=== PATIENT | male | born 1970 | race Caucasian/White ===

== ENCOUNTER 2017-04-06 14:51 | Emergency (ER) | payer BC ==
--- NOTE | 2017-04-06 15:20 | C.PDOC ---
History Of Present Illness 47 yo male, no prior hx, presents from clinic for eval of hypertensive urgency and "abdominal mass". as per [facility], pt was noted to have elevated pressure on routine office visit pt reports an "upper abdominal mass", that he has had for last 3 months. clinic was concerned for AAA. no fevers, n/v/d, or urinary change.s Time Seen by Provider: 04/06/17 15:13 Chief Complaint (Nursing): High Blood Pressure Past Medical History Reviewed: Historical Data, Nursing Documentation, Vital Signs Vital Signs: Last Vital Signs Temp 98.9 F 04/06/17 18:04 Pulse 79 04/06/17 18:04 Resp 20 04/06/17 18:04 BP 191/130 H 04/06/17 18:04 Pulse Ox 98 04/06/17 21:38 Family History: States: Unknown Family Hx - Social History Hx Alcohol Use: No Hx Substance Use: No Review Of Systems Except As Marked, All Systems Reviewed And Found Negative. Gastrointestinal: Positive for: Abdominal Pain Physical Exam - Physical Exam Appears: Well, No Acute Distress Skin: Normal Color, Warm, Dry Eye(s): bilateral: Normal Inspection, PERRL, EOMI Nose: Normal Throat: Normal Neck: Normal Cardiovascular: Rhythm Regular Respiratory: Normal Breath Sounds Gastrointestinal/Abdominal: Normal Exam, Soft, Tenderness (mild epigastric), No Guarding, No Rebound Back: Normal Inspection Extremity: Normal ROM ED Course And Treatment - Laboratory Results Result Diagrams: 04/06/17 15:28 04/06/17 15:28 O2 Sat by Pulse Oximetry: 98 Medical Decision Making Medical Decision Making: r/o hypertensive urgency vs emergency. ?mass -?aaa. no pulsatile mass felt in er , clinc sent pt for imaging ekg nsr 94 lvh, nonspecific st t wave changes 610: clinic doctor advises spoke to dr blackwood for abnormal ekg, lvh, requested pt be admitted for eval. pt now refusing admission. will sign ama. understands risks Disposition - Disposition Referrals: [facility] [Outside] Intensive Care Nurse Service [Outside] Herman Chan MD [Staff Provider] - Milton Blackwood MD [Staff Provider] - Disposition: HOME/ ROUTINE Disposition Time: 18:09 Condition: STABLE Additional Instructions: you are chosing to not be admitted to hospital. return to er with worsneing symptoms or concerns. Prescriptions: Famotidine [Pepcid] 20 mg PO DAILY #20 tab Instructions: Acute Abdominal Pain (ED), Hypertension (ED), Against Medical Advice (ED) Print Language: PALAUAN - Clinical Impression Clinical Impression: Hypertensive urgency, Abdominal pain
[2017-04-06] MEDS ORDERED: Labetalol 25mg/5ml Syringe IVP STA (15:24)
[2017-04-06 15:36] LABS: BASO # 0.1 K/uL (0.0-0.2); BASO % 0.9 % (0.0-2.0); EOS # 0.2 K/uL (0.0-0.7); HEMOGLOBIN 14.7 g/dL (12.0-18.0); LYMPH # 2.8 K/uL (1.0-4.3); LYMPH % 34.4 % (20.0-40.0); MEAN CELL VOLUME 88.4 fL (80.0-94.0); MEAN CORPUSCULAR HGB CONC 32.8 g/dL (33.0-37.0); MEAN PLATELET VOLUME 8.4 fL (7.2-11.7); MONO # 0.7 K/uL (0.0-0.8); MONO % 8.7 % (0.0-10.0); NEUT # 4.5 K/uL (1.8-7.0); RBC 5.06 Mil/uL (4.40-5.90); RED CELL DISTRIBUTION WIDTH 14.2 % (11.5-14.5); WHITE BLOOD COUNT 8.3 K/uL (4.8-10.8)
[2017-04-06 15:43] LABS: ALBUMIN 4.3 g/dL (3.5-5.0)
[2017-04-06 15:46] LABS: ALB/GLOB RATIO 1.2 (1.0-2.1); ALT/SGPT 52 U/L (21-72); AST/SGOT 32 U/L (17-59); BLOOD UREA NITROGEN 17 mg/dL (9-20); GFR AFRICAN-AMERICAN > 60; GFR NON-AFRICAN AMERICAN > 60; LIPASE 33 U/L (23-300); PROTHROMBIN TIME 11.1 SECONDS (9.7-12.2)
--- NOTE | 2017-04-06 15:46 | RAD ---
HISTORY: chest pain COMPARISON: None available. TECHNIQUE: Chest, one view. FINDINGS: Examination limited by habitus. LUNGS: No focal consolidation. Please note that chest x-ray has limited sensitivity for the detection of pulmonary masses. PLEURA: No significant pleural effusion identified. No definite pneumothorax . CARDIOVASCULAR: Borderline cardiomegaly. OSSEOUS STRUCTURES: Degenerative changes of the spine. VISUALIZED UPPER ABDOMEN: Unremarkable. OTHER FINDINGS: None. IMPRESSION: Borderline cardiomegaly. No focal consolidation, significant pleural effusion, or definite pneumothorax identified.
[2017-04-06 15:47] LABS: CALCIUM 8.9 mg/dl (8.6-10.4)
[2017-04-06 15:59] LABS: URINE BILIRUBIN NEGATIVE (NEGATIVE); URINE BLOOD NEGATIVE (NEGATIVE); URINE CLARITY Clear (Clear); URINE COLOR Straw (YELLOW); URINE GLUCOSE (UA) NORMAL (Normal); URINE LEUKOCYTE ESTERASE NEG Leu/uL (Negative); URINE NITRATE NEGATIVE (NEGATIVE); URINE PROTEIN NEGATIVE (NEGATIVE); URINE UROBILINOGEN NORMAL mg/dL (0.2-1.0)
[2017-04-06] MEDS ORDERED: Labetalol 25mg/5ml Syringe ONE (16:12)
[2017-04-06 16:19] VITALS: RESP 20
--- NOTE | 2017-04-06 17:47 | CT ---
CT dissection protocol with IV contrast Indication: cp/ upper abd pain ?pulsatile mass r/o aaa Technique: Contiguous axial images of the chest, abdomen, and pelvis. Coronal and Sagittal reformats generated and reviewed. This CT exam was performed using 1 or more of the following dose reduction techniques: Automated exposure control, adjustment of the MAA and/or kV according to patient size, and/or use of iterative reconstruction technique. Oral contrast was not administered. 100 cc Visipaque [id number]. Radiation dose: Total exam DLP = 2414.90 MGy-cm. Comparison: Chest x-ray performed 04/06/17 Findings: Visualized portions of the inferior thyroid gland appear unremarkable. The mediastinal and hilar vascular structures appear within normal limits. Cardiomegaly. There is no focal consolidation, significant pleural effusion, or definite pneumothorax evident. No suspicious pulmonary nodules measuring greater than 5 mm. Tiny hiatal hernia. The thoracic and abdominal aorta appears within normal limits of caliber. No evidence of aneurysmal dilatation or aortic dissection. 3.1 cm right lower pole renal cyst. No hydronephrosis or obstructing calculus. The liver, spleen, pancreas, adrenal glands, and gallbladder appear unremarkable. The stomach is nondistended. The included bowel loops appear within normal limits of caliber without evidence of intestinal obstruction. The appendix appears within normal limits of caliber. No secondary signs of acute appendicitis. There is no definite free air. Fat containing umbilical hernia measures approximately 12 mm in diameter. No acute osseous abnormality is detected. Impression: The thoracic and abdominal aorta appears within normal limits of caliber. No evidence of aneurysmal dilatation or aortic dissection. 3.1 cm probable right lower pole renal cyst. Fat containing umbilical hernia. Cardiomegaly. Additional findings as above.
[2017-04-06 18:13] VITALS: BP 191/130; PULSE 79; TEMP 98.9
[2017-04-06 18:15] VITALS: O2SAT 98
== END 2017-04-06 18:30 | disposition home or self-care (01) ==
LOC: C.ER 14:51
DX: I16.0 Hypertensive urgency (principal); I10 Essential (primary) hypertension; R10.9 Unspecified abdominal pain
CPT/HCPCS: 71010; 71275; 74175; 80053; 81001; 83690; 84484; 85025; 85610; 85730; 96374; 96375; 99285; C9113